=== PATIENT | male | born 2005 | race Two or more races ===

== ENCOUNTER 2025-01-29 23:14 | Emergency (ER) | payer SELFPAY ==
[~2025-01-29] VITALS: Ht 188 cm; Wt 85.0 kg
[2025-01-29 23:16] VITALS: BP 147/91; PULSE 96; RESP 16; TEMP 37.1; O2SAT 97
== END 2025-01-30 04:01 | disposition left against medical advice (07) ==
LOC: ER 23:14
DX: R53.1 Weakness (principal); Z53.21 Procedure and treatment not carried out due to patient leaving prior to being seen by health care provider